=== PATIENT | male | born 1945 | race Caucasian/White ===

== ENCOUNTER 2019-10-22 07:42 | Inpatient (IN) | payer MEDICARE, OTHER ==
[~2019-10-22] VITALS: Ht 172.7 cm; Wt 173.7 kg
[~2019-10-22 07:42] MED LIST: HYDROCODON-ACE1 EAC9 PO; OMEPRAZOLE20 M1 PO; PRAVASTATIN SOD20 MG PO; TERAZOSIN HCL5 MG PO; ULTRAM50 MG PO; VERAPAMIL ER240 MG OD
[2019-10-22] MEDS ORDERED: CEFTRIAXONE SOD 1 GM VIAL IV ONE (08:30)
--- NOTE | 2019-10-22 09:15 | Diagnostic Imaging Report ---
EXAMINATION: CXR 1 [facility] INDICATION: ^fever ^[id number] ^0856. COMPARISON: None FINDINGS: AP view TUBES and LINES: None. LUNGS/PLEURA: Lungs are not well inflated. There are basilar opacities likely due to atelectasis.. There is no pleural effusion or pneumothorax. HEART AND MEDIASTINUM: The cardiomediastinal silhouette is unremarkable. BONES AND SOFT TISSUES: No acute osseous lesion. Soft tissues are unremarkable. UPPER ABDOMEN: No free air under the diaphragm. IMPRESSION: Basilar opacities likely atelectasis.. Signed by: Rufus Evangelista MD on 10/22/2019 9:12 AM
[2019-10-22] MEDS ORDERED: CEFTRIAXONE SOD 1 GM/NS 50 ML 50 ML IV ONE (09:39)
[2019-10-22] MEDS ORDERED: MORPHINE SULFATE 2 MG/ML SYR 1ML IV PRN (10:45)
[2019-10-22] MEDS ORDERED: ACETAMINOPHEN 325 MG TAB PO PRN (10:45)
[2019-10-22] MEDS ORDERED: ZOLPIDEM TARTRATE 5 MG TAB PO PRN (10:45)
[2019-10-22] MEDS ORDERED: DIPHENHYDRAMINE HCL INJ 50 MG/ML VIAL IV PRN (10:45)
[2019-10-22] MEDS ORDERED: ONDANSETRON HCL INJ 2MG/ML 2ML 2 MG/ML VIAL IV PRN (10:45)
--- NOTE | 2019-10-22 11:20 | NUR ---
[facility] called for transport
--- NOTE | 2019-10-22 11:32 | NUR ---
Report called to ELSY Moy
--- NOTE | 2019-10-22 11:50 | NUR ---
Pt is in the restroom vomiting
--- OUTSIDE RECORDS SUMMARY | 2019-10-22 12:11 | XMS REPORT ---
Author Author [facility] Address Unknown Phone Unavailable Care Team Providers Care Glost Kiln Placer Name Role Phone Rahul DAVE Unavailable Unavailable Problems This patient has no known problems. Allergies, Adverse Reactions, Alerts This patient has no known allergies or adverse reactions. Medications This patient has no known medications. Encounters Start Date/Time End Date/Time Encounter Type Admission Type Attending Clinicians Care Facility Care Department Encounter ID 2019-05-03 12:58:02 Outpatient [id number] Results Test Description Test Time Test Comments Text Results Atomic Results Result Comments CXR 1 [facility] - [facility] 2019-10-22 09:11:00 [facility] [address] [place] [address] Patient Name: PATRICE LOMBARDI MR #: [id number] : 1945 Age/Sex: 74/M Req #: [id number] Adm Physician: Ordered by: YOSELIN DAVE MD Report #: [id number] [facility] Room/Bed: Procedure: [id number] [facility]/CXR 1 [facility] Exam Date: 10/22/19 Exam Time: 0856 REPORT STATUS: Signed EXAMINATION: CXR 1 [facility] INDICATION: f ever [id number] 0856. COMPARISON: None FINDINGS: AP view TUBES and LINES: None. LUNGS/PLEURA: Lungs are not well inflated. There are basilar opacities likely due to atelectasis.. There is no pleural effusion or pneumothorax. HEART AND MEDIASTINUM: The cardiomediastinal silhouette is unremarkable. BONES AND SOFT TISSUES: No acute osseous lesion. Soft tissues are unremarkable. UPPER ABDOMEN: No free air under the diaphragm. IMPRESSION: Basilar opacities likely atelectasis.. Signed by: Rufus Evangelista MD on 10/22/2019 9:12 AM Dictated By: RUFUS EVANGELISTA MD 1 Transcribed By: FELICITAS on 10/22/19911 COPY TO: YOSELIN DAVE MD
[2019-10-22] MEDS ORDERED: XARELTO20 MG (12:29)
[2019-10-22] MEDS ORDERED: FUROSEMIDE40 MG PO (12:29)
[2019-10-22] MEDS ORDERED: FLOMAX0.4 MG PO (12:29)
[2019-10-22 13:00] VITALS: BP 122/68
--- NOTE | 2019-10-22 13:30 | NUR ---
PATIENT ARRIVED ON THE UNIT AT 1258 PER HIS ELECTRIC WHEELCHAIR FROM [facility]. PATIENT IS AWAKE, ALERT, AND IN STABLE CONDITION WITH NO S/S OF RESPIRATORY DISTRESS. PATIENT C/O ABD PAIN 2/10- DOES NOT WANT ANY MEDICATION AT THIS TIME. REDNESS AND SKIN TEARS NOTED TO ABD FOLD AND GROIN AREA. DISCOLORATION NOTED TO LOWER EXTREMITIES; NONPITTING EDEMA NOTED TO LOWER EXTREMITIES. CALL LIGHT IS WITHIN REACH, PATIENT INSTRUCTED TO CALL FOR ASSISTANCE NEEDED.
[2019-10-22 13:49] VITALS: BP 122/68
--- NOTE | 2019-10-22 13:55 | History and Physical ---
HISTORY OF PRESENT ILLNESS: The patient is a 74-year-old male, past medical history positive for sleep apnea, obesity, and valve replacement, who apparently came to the emergency room complaining of abdominal pain, fever, and cough. The patient's white blood count was extremely high and he was admitted to the hospital with diagnosis of UTI and pyelonephritis. REVIEW OF SYSTEMS: CARDIOVASCULAR: No chest pain or palpitation. RESPIRATORY: He has some cough. GASTROINTESTINAL: No nausea or vomiting. He has some diarrhea with abdominal cramping. GENITOURINARY: No frequency or dysuria. ALLERGIES: NOT ALLERGIC TO ANYTHING. PAST MEDICAL HISTORY: Hypertension, hypercholesterolemia, CHF, valve replacement. PHYSICAL EXAMINATION: HEART: Showed regular rhythm. Normal S1 and S2 sound. LUNGS: Clear bilaterally. ABDOMEN: Soft. EXTREMITIES: Show edema in both lower extremities. VITAL SIGNS: Blood pressure is 148/80, temperature is 99 degrees, highest is 100.8, heart rate 92 per minute, and oxygen saturation 96%. LABORATORY DATA: Blood culture and urine culture were sent. Reports are pending. We are going to order a chest CT also. FINAL IMPRESSION: 1. Fever, possible pyelonephritis, rule out pneumonia. 2. Hypertension. 3. Morbid obesity. 4. History of congestive heart failure. 5. Hypercholesterolemia. 6. Sleep apnea. PLAN OF TREATMENT: We are going to continue Rocephin 2 g IV daily. Terazosin will continue. Continue omeprazole. Continue pravastatin. Continue Xarelto. Continue hydralazine. Continue atenolol. Continue Flomax. Continue Entresto. Continue Lasix and potassium that he was taking at home. We are going to order a CBC and BMP tomorrow, CAT scan of the chest because of the cough just to make sure the patient does not have any atypical pneumonia. MD HAVEN Maynard/DAVON /[id number]
[2019-10-22] MEDS ORDERED: CEFEPIME HCL 2 GM/SOD CHL 0.9% 100 ML BAG IV SCH (14:00)
[2019-10-22 14:08] VITALS: BP 122/68
[2019-10-22] MEDS: LACTATED RINGER'S 1,000 ML IV SCH (14:23)
[2019-10-22 14:42] LABS: CREATINE KINASE MB 0.4 ng/mL (0-5.0)
[2019-10-22 16:00] VITALS: BP 143/59
[2019-10-22] MEDS ORDERED: CEFEPIME 2 GM/NS 0.9% 100 ML 100 ML IV SCH (16:00)
[2019-10-22] MEDS: ENOXAPARIN SOD INJ 40 MG/0.4 ML SYR SC SCH (16:04)
[2019-10-22] MEDS: FAMOTIDINE 20 MG/2 ML VIAL IV SCH (16:04)
[2019-10-22] MEDS: FUROSEMIDE 40 MG TAB PO SCH (16:04)
[2019-10-22] MEDS: PANTOPRAZOLE SOD 40 MG TABEC PO SCH (16:04)
[2019-10-22] MEDS: CEFTRIAXONE SOD 1 GM/NS 50 ML 50 ML IV SCH (18:10)
--- NOTE | 2019-10-22 18:30 | NUR ---
Dr. Donaldson informed of patient slipping in the restroom and RN guided the patient to the floor. No injuries occurred and the patient remains in stable condition.
--- NOTE | 2019-10-22 19:07 | Consultation ---
DATE OF CONSULTATION: REASON FOR CONSULTATION: Pneumonia. HISTORY OF PRESENT ILLNESS: This patient is a 74-year-old white male, who is morbidly obese patient, sleep apnea, valve replacement, comes in with 3 days history of not feeling well, abdominal pain, fever with diarrhea. The patient also has some cough started today. The patient lives at house with his son and his and their kids. No travel. The patient comes in with the above complaint. He was referred from an outside facility. Currently lying in bed. He is having some cough, which was little productive. He had chest x-ray showed basal opacity like atelectasis. REVIEW OF SYSTEMS: Otherwise as above. SOCIAL HISTORY: There is no smoking, drug abuse, or alcohol abuse. FAMILY HISTORY: Noncontributory. REVIEW OF SYSTEMS: Otherwise, HEENT: Negative. PULMONARY: As above. : Negative. GI: As above. PHYSICAL EXAMINATION: GENERAL: He is currently alert, oriented, obese. VITAL SIGNS: Stable, currently afebrile. HEENT: He is not icteric. NECK: Supple. CHEST: Few crackles. IMPRESSION: 1. Community-acquired pneumonia. 2. Concern about viral in the patient with multiple symptoms. 3. Since we are in the amid of outbreak for COVID-19, I would like to put the patient on droplet isolation and obtain COVID-19. Discussed with the medical team. We will follow. 4. Sleep apnea. 5. Morbidly obese patient. 6. Further recommendations to follow. MD ZENA Li/DAVON /[id number]
--- NOTE | 2019-10-22 19:26 | NUR ---
PATIENT IS IN STABLE CONDITION WITH NO S/S OF RESPIRATORY DISTRESS. NO PAIN VOICED. CPAP APPLIED. IV FLUIDS INFUSING. BED ALARM APPLIED. CALL LIGHT IS WITHIN REACH, PATIENT INSTRUCTED TO CALL FOR ASSISTANCE NEEDED. BEDSIDE SHIFT REPORT GIVEN TO ONCOMING NURSE.
--- NOTE | 2019-10-22 19:30 | NUR ---
RECEIVED REPORT FROM DAY NURSE. PATIENT IS RESTING COMFORTABLY IN THE BED. BED IS IN LOWEST POSITION AND CALL LIGHT IS WITHIN REACH. WILL CONTINUE TO MONITOR PATIENT.
[2019-10-22 20:00] VITALS: BP 127/57
[2019-10-22 20:54] LABS: CREATINE KINASE MB 0.5 ng/mL (0-5.0)
--- NOTE | 2019-10-22 22:18 | Diagnostic Imaging Report ---
CT chest without enhancement CPT code: 98821 INDICATION: Cough, shortness of breath TECHNIQUE: Thin collimation axial images obtained from the thoracic inlet to the level of the diaphragm without intravenous contrast. Dose reduction techniques used: Automated exposure control, adjustment of the mAs and/or kVp according to patient size, standardized low-dose protocol, and/or iterative reconstruction technique. RADIATION DOSE: Total DLP: 487.94 mGy*cm Estimated effective dose: (DLP x 0.015 x size factor) mSv CTDIvol has been reviewed. It is below the limits set by the Radiation Protocol Committee (RPC). COMPARISON: Chest x-ray 0749 hours. CHEST FINDINGS: Lymph nodes: No enlarged axillary, supraclavicular, mediastinal, or hilar lymph nodes given the lack of intravenous contrast. Thyroid: Visualized portions are normal. Mediastinum: TAVR in appropriate position. The heart is enlarged with coronary artery calcifications. Tiny pericardial effusion. Main pulmonary artery measures 4.0 cm in diameter. The ascending aorta measures 3.8 cm. Lungs: Right: Mild hyperinflation. Trace basilar atelectasis at the diaphragm. Small focus of atelectasis in the inferior upper lobe. No infiltrates. Subcentimeter calcified granuloma in the upper lobe. Left: Mild hyperinflation. Mild basilar atelectasis. No infiltrates. Airways: Diffuse bronchial wall thickening. Pleura: No pleural effusion or pleural based mass. ABDOMEN FINDINGS: Diffuse fatty atrophy of the pancreas body and tail. Nodule in the apex of the left adrenal gland measures 1.3 x 1.2 cm with attenuation of -36 HU. There is extensive streak artifact in the abdomen, however. Bones: Degenerative changes of the spine. Mild height loss of several lower thoracic vertebral bodies. The spinal canal is widely patent. Soft tissues: Calcification within the tendon of the left pectoralis minor. IMPRESSION: 1. Diffuse hyperinflation suggestive of small airways disease. Mild bibasilar atelectasis. Diffuse bronchial wall thickening suggestive chronic bronchitis. No infiltrates. 2. Cardiomegaly and TAVR. Enlarged pulmonary artery suggestive of pulmonary artery hypertension. 3. Left adrenal nodule may represent an adenoma or myelolipoma. This can be confirmed with CT of the abdomen on an outpatient basis. Signed by: Dr. Magdy Muñoz MD on 10/22/2019 10:14 PM
[2019-10-22 22:23] VITALS: BP 127/57
[2019-10-23] VITALS (8 sets, daily range): BP systolic 104–144; BP diastolic 51–68
[2019-10-23 05:54] LABS: BASOPHILS % 0.2 % (0.0-1.0); EOSINOPHILS % 0.2 % (0.0-6.0); HEMATOCRIT 40.6 % (38.2-49.6); HEMOGLOBIN 12.5 g/dL (14.0-18.0); LYMPHOCYTES # (AUTO) 0.7 (1.0-3.2); LYMPHOCYTES % 4.3 % (18.0-39.1); MEAN CORPUSCULAR HEMOGLOBIN 28.3 pg (28-32); MEAN CORPUSCULAR HGB CONC 30.8 g/dL (31-35); MEAN CORPUSCULAR VOLUME 91.9 fL (81-99); MONOCYTES # (AUTO) 1.9 (0.2-0.8); NEUTROPHILS # (AUTO) 13.3 (2.1-6.9); NEUTROPHILS % 82.6 % (38.7-80.0); PLATELET COUNT 216 x10e3/uL (140-360); RED BLOOD COUNT 4.42 x10e6/uL (4.3-5.7); RED CELL DISTRIBUTION WIDTH 14.5 % (11.7-14.4)
[2019-10-23 06:03] LABS: CREATINE KINASE MB 0.7 ng/mL (0-5.0)
[2019-10-23 06:24] LABS: ANION GAP 12.6 mmol/L (8-16); CALCIUM 9.6 mg/dL (8.4-10.2); CREATININE, SERUM 1.24 mg/dL (0.72-1.25); POTASSIUM 3.6 mmol/L (3.5-5.1)
--- NOTE | 2019-10-23 07:00 | NUR ---
Received bedside shift report. Patient in stable condition,no s/s of distress. CPAP on in place and working. Bed in lowest position and locked. Call light within reach.
[2019-10-23] MEDS: PANTOPRAZOLE SOD 40 MG TABEC PO SCH ×2 (07:15→16:15)
[2019-10-23] MEDS: TAMSULOSIN HCL 0.4 MG CAP PO SCH (08:15)
[2019-10-23] MEDS: PRAVASTATIN 20 MG TAB PO SCH (08:16)
[2019-10-23] MEDS: RIVAROXABAN 20 MG TABLET PO SCH (08:16)
[2019-10-23] MEDS: FAMOTIDINE 20 MG/2 ML VIAL IV SCH (08:28)
[2019-10-23] MEDS: FUROSEMIDE 40 MG TAB PO SCH ×2 (08:28→16:15)
--- NOTE | 2019-10-23 09:42 | NUR ---
Notified (Gregory LOVE) about [facility] alert. No orders received.
--- NOTE | 2019-10-23 10:07 | NUR ---
RN ASSISTED THE PATIENT BACK TO BED- PATIENT REFUSING THE BED ALARM AND NON-SKID SOCKS
[2019-10-23] MEDS ORDERED: ASPIRIN81 MG PO (10:54)
[2019-10-23] MEDS ORDERED: TERAZOSIN HCL10 MG PO (10:54)
[2019-10-23] MEDS ORDERED: POTASSIUM CHLO10 ME1 PO (10:54)
[2019-10-23] MEDS ORDERED: HYDRALAZINE HCL25 MG PO (10:54)
--- NOTE | 2019-10-23 13:39 | Progress Note ---
DATE: Internal Medicine Progress Note SUBJECTIVE: The patient came with fever, cough, diarrhea, originally diagnosed with UTI, but urine culture came back with contaminant. He has been ruled out for COVID-19 because of the cough and the leukopenia. PHYSICAL EXAMINATION: HEART: Showed regular rhythm. Normal S1 and S2 sounds. LUNGS: Clear bilaterally. VITAL SIGNS: Temperature 97.3, heart rate 82 per minute, respiratory rate 24 per minute, blood pressure 104/51, and oxygen saturation 95%. LABORATORY STUDIES: CBC; white blood cell count is elevated at 60,120, hemoglobin 12.5, hematocrit 40.6, platelet count 260,000, neutrophils elevated at 82.6, lymphocytes low at 4.3, monocytes high at 12.0, eosinophils 0.2, basophils 0.2. On the BMP; sodium 135, potassium 3.6, chloride 101, CO2 of 25, BUN 29, creatinine 1.24, glucose 114, and lactic acid 1.3. Troponins are negative x3, 0.018, 0.038, 0.048. Serology for coronavirus still pending. CT of the chest has been done because of a concern about COVID-19 and it showed the following; diffuse hyperinflation suggestive of small airway disease, mild bibasilar atelectasis, diffuse bronchial wall thickening suggestive of chronic bronchitis, no infiltrate, cardiomegaly and TAVR, enlarged pulmonary artery suggesting pulmonary artery hypertension, left adrenal nodule may represent a normal myelolipoma. This can be confirmed with a CT of the abdomen on an outpatient basis. We have blood cultures, which are negative for 24 hours. Urine culture showed some contamination. FINAL IMPRESSION: 1. Fever. 2. Hypertension. 3. Acute bronchitis, rule out COVID-19. 4. Morbid obesity. 5. History of congestive heart failure. 6. Hypercholesterolemia. 7. Sleep apnea. 8. Aortic valve replacement. 9. Pulmonary hypertension. PLAN OF TREATMENT: We are going to continue with current antibiotic therapy, which includes cefepime 1 g IV once a day. He is taking lactated Ringer's at 50 mL per hour. Continue Tylenol 650 mg every 4 hours as needed for pain or fever. Benadryl is going to be discontinued, we do not need that. Continue furosemide 40 mg twice a day. Lovenox 40 mg subcutaneous daily for DVT prophylaxis. Morphine 2 mg IV every 4 hours as needed for severe pain. Zofran 4 mg IV every 4 hours as needed for nausea and vomiting. Protonix 40 mg twice a day. Pravastatin 40 mg daily. Xarelto 20 mg daily. Flomax 0.4 mg daily. Ambien 5 mg at night p.r.n. for insomnia. We will wait for the COVID-19 test. Infectious Disease on the case. We are going to get a Pulmonary consult also. Internal medicine progress note, consult and report have been reviewed. MD HAVEN Maynard/DAVON /[id number]
--- NOTE | 2019-10-23 14:16 | NUR ---
PATIENT IS IN DROPLET ISOLATION FOR POSS TANNER VIRUS CM CALLED AND SPOKE WITH HIS DAUGHTER BRAULIO HAIRSTON. PATIENT IS A , AND LIVES WITH HIS DAUGHTER, HER , GRANDSON AND GRANDSON'S AND CHILDREN HE DOES NOT HAVE HOME HEALTH DME: HE HAS WHEELCHAIR AND BIPAP MACHINE PCP: DR. Gilma EVANGELISTA DC PLAN: RETURN HOME WITH FAMILY, PENDING MEDICAL OUTCOME.
[2019-10-23] MEDS: ENOXAPARIN SOD INJ 40 MG/0.4 ML SYR SC SCH (16:15)
[2019-10-23] MEDS: CEFTRIAXONE SOD 1 GM/NS 50 ML 50 ML IV SCH (16:15)
[2019-10-23] MEDS: LACTATED RINGER'S 1,000 ML IV SCH (16:15)
--- NOTE | 2019-10-23 19:14 | NUR ---
PATIENT IS SITTING IN HIS ELECTRIC WHEELCHAIR- IN STABLE CONDITION WITH NO S/S OF RESPIRATORY DISTRESS. NO PAIN VOICED. CALL LIGHT IS WITHIN REACH, PATIENT INSTRUCTED TO CALL FOR ASSISTANCE NEEDED. BEDSIDE SHIFT REPORT GIVEN TO ONCOMING NURSE.
--- NOTE | 2019-10-23 20:45 | NUR ---
Received new order from attending MD to DC IV fluids.
[2019-10-24] VITALS (9 sets, daily range): BP systolic 108–156; BP diastolic 68–81
[2019-10-24] MEDS: ACETAMINOPHEN 325 MG TAB PO PRN ×2 (00:35→23:41)
--- NOTE | 2019-10-24 00:35 | NUR ---
RECEIVED REPORT FROM CODY RN, PATIENT IS RESTING IN WHEELCHAIR IN STABLE CONDITION, NO SIGNS OF DISTRESS. NASAL CANNULA INTACT, CALL LIGHT WITHIN EASY REACH, WILL CONTINUE TO MONITOR.
--- NOTE | 2019-10-24 02:44 | NUR ---
SUCCESSFULLY TRANSFERRED PATIENT FROM WHEELCHAIR TO BED. PATIENT RESTING COMFORTABLY, NO SIGNS OF DISTRESS NOTED.
[2019-10-24 06:36] LABS: BASOPHILS % 0.1 % (0.0-1.0); EOSINOPHILS % 0.1 % (0.0-6.0); HEMATOCRIT 40.8 % (38.2-49.6); HEMOGLOBIN 12.8 g/dL (14.0-18.0); LYMPHOCYTES # (AUTO) 0.7 (1.0-3.2); LYMPHOCYTES % 4.8 % (18.0-39.1); MEAN CORPUSCULAR HEMOGLOBIN 28.6 pg (28-32); MEAN CORPUSCULAR HGB CONC 31.4 g/dL (31-35); MEAN CORPUSCULAR VOLUME 91.1 fL (81-99); MONOCYTES # (AUTO) 1.4 (0.2-0.8); MONOCYTES % 9.8 % (4.4-11.3); NEUTROPHILS # (AUTO) 12.2 (2.1-6.9); NEUTROPHILS % 84.4 % (38.7-80.0); PLATELET COUNT 229 x10e3/uL (140-360); RED BLOOD COUNT 4.48 x10e6/uL (4.3-5.7); RED CELL DISTRIBUTION WIDTH 14.3 % (11.7-14.4)
--- NOTE | 2019-10-24 07:00 | NUR ---
Received bedside shift report. Patient in stable condition,no s/s of distress. No complaints of pain. Patient up in wheelchair. Call light within reach. All personal items within reach.
[2019-10-24] MEDS: PRAVASTATIN 20 MG TAB PO SCH (08:52)
[2019-10-24] MEDS: ASPIRIN 81 MG CHEW TAB PO SCH (08:52)
[2019-10-24] MEDS: POTASSIUM CHLORIDE 10MEQ EA PO SCH (08:52)
[2019-10-24] MEDS: FUROSEMIDE 40 MG TAB PO SCH ×2 (08:52→16:39)
[2019-10-24] MEDS: TAMSULOSIN HCL 0.4 MG CAP PO SCH (08:52)
[2019-10-24] MEDS: RIVAROXABAN 20 MG TABLET PO SCH (08:52)
[2019-10-24] MEDS: PANTOPRAZOLE SOD 40 MG TABEC PO SCH ×2 (08:52→16:39)
[2019-10-24] MEDS: ENOXAPARIN SOD INJ 40 MG/0.4 ML SYR SC SCH (16:39)
[2019-10-24] MEDS: CEFTRIAXONE SOD 1 GM/NS 50 ML 50 ML IV SCH (16:39)
--- NOTE | 2019-10-24 19:37 | NUR ---
Bedside shift report completed with oncoming nurse. Patient in stable condition, no s/s of distress noted. No complaints of pain noted. Patient sitting at bedside; Call light within reach. All personal items within reach.
[2019-10-25 04:27] VITALS: BP 158/74
--- NOTE | 2019-10-25 07:10 | NUR ---
PATIENT OUT OF BED TO ELECTRIC WHEEL CHAIR, REQUESTED AND RECEIVED A CUP OF ICE WATER. REFUSED YELLOW SOCKS TO BE APPLIED STATING " THEY MADE ME FALL" EDUCATED THAT THE SOCKS WILL PREVENT HIM FROM FALLING, HE STILL REFUSED. ALL PERSONAL ITEMS AND CALL LIGHT AT REACH. INSTRUCTED TO CALL FOR ASSISTANCE NEEDED.
[2019-10-25 07:42] VITALS: BP 154/85
[2019-10-25] MEDS: PANTOPRAZOLE SOD 40 MG TABEC PO SCH (08:00)
[2019-10-25 08:09] VITALS: BP 154/88
[2019-10-25] MEDS: POTASSIUM CHLORIDE 10MEQ EA PO SCH (09:36)
[2019-10-25] MEDS: TAMSULOSIN HCL 0.4 MG CAP PO SCH (09:36)
[2019-10-25] MEDS: FUROSEMIDE 40 MG TAB PO SCH (09:36)
[2019-10-25] MEDS: ASPIRIN 81 MG CHEW TAB PO SCH (09:36)
[2019-10-25] MEDS: RIVAROXABAN 20 MG TABLET PO SCH (09:37)
[2019-10-25] MEDS: PRAVASTATIN 20 MG TAB PO SCH (09:37)
[2019-10-25] MEDS ORDERED: AUGMENTIN 875-1 EACH PO (11:36)
[2019-10-25 11:50] VITALS: BP 126/76
--- NOTE | 2019-10-25 12:05 | NUR ---
PATIENT DISCHARGED HOME. DISCHARGE INSTRUCTIONS, PRESCRIPTIONS, AND FOLLOW UP GIVEN TO PATIENT, HE VERBALIZED UNDERSTANDING. IV TO LEFT FOREARM REMOVED WITH TIP INTACT. ALL PERSONAL ITEMS TAKEN WITH PATIENT. LEFT UNIT PER WHEEL CHAIR TO FRONT LOBBY IN STABLE CONDITION.
--- NOTE | 2019-11-29 01:42 | Discharge Summary ---
CHIEF COMPLAINT: Abdominal pain and fever. FINAL DIAGNOSES: 1. Pneumonia. 2. Extreme obesity. 3. Pulmonary hypertension. DISPOSITION: Home. HOSPITAL COURSE: A 74-year-old male with past medical history of sleep apnea, obesity, valve replacement, presents to the emergency room complaining of abdominal pain, fever, and cough. Evaluated in the ER. Studies were performed. Findings were showing blood labs with elevated white count as well as UTI with diagnosis of pyelonephritis. Admission was made regarding fever, possible pyelonephritis, rule out pneumonia, hypertension, morbid obesity, history of congestive heart failure, hypercholesterolemia, sleep apnea. We will begin Rocephin, terazosin, and omeprazole. Home medications will be continuing as well. With admission, the patient was being reviewed with Infectious Disease regarding pneumonia by Dr. Tavera and with his review, his impression was community-acquired pneumonia, concerned about viral in the patient with multiple symptoms. We will be checking the patient for COVID-19. Sleep apnea, morbidly obese patient. The patient was admitted to the Med-Surg floor, was on a cardiac diet, . Vital signs continued to be monitored. Laboratory studies were showing elevated white count. X-rays of the chest were carried out. COVID-19 was requested and results were pending. With the application of antibiotics and other medications, the patient began to feel better. Cough was improving. Leukocytosis was improving. Fever was improving. Arrangements are being made to have the patient discharge home. He will be placed on Z-Tremaine at home along with Augmentin and the COVID results will be followed as an outpatient. He was cleared for discharge home. Chest x-ray shows bibasilar opacities, likely atelectasis. CT of chest shows diffuse hyperinflation suggestive of small airway disease. Mild bibasal atelectasis. Diffuse bronchial wall thickening suggestive of chronic bronchitis. No infiltrate. Cardiomegaly and TAVR. Enlarged pulmonary artery suggestive of pulmonary artery hypertension. Left adrenal nodule may represent an adenoma or myelolipoma. Cultures; urine and blood were negative. Laboratory studies shows initial CBC with white cell count elevated at 16,100, H and H 12.5 and 40.6. Followup white cell count still elevated at 14,400. COVID-19 study was negative. Chemistries show electrolytes to be unremarkable. Kidney functions were stable. Cardiac enzymes were stable. The patient responded to care and he was able to be discharged. The patient will be discharged home. IVs were discontinued. The patient will continue on his current diet. No equipments or supplies were necessary. No drains or [place] were needed. Activity level as directed by myself as well as by Dr. Tavera. The patient will be following back up with his PCP within 7 to 10 days. He will be continuing on amoxicillin, Augmentin 875 p.o. q.12, #16; aspirin 81 mg daily; furosemide 40 mg b.i.d.; hydralazine 25 mg p.o. t.i.d.; omeprazole 20 mg daily; potassium chloride 10 mEq p.o. daily; pravastatin sodium 20 mg daily; Xarelto 20 mg daily; Flomax 0.4 mg p.o. daily; and terazosin 10 mg p.o. daily. Dictated by MARGAUX Vale [place] MD CC/MODL /[id number]
== END 2019-10-25 12:00 | disposition home or self-care (01) | DRG 871 ==
LOC: FSED 07:42 → ERHOLD 10:37 → MED/SURG3 13:11
DX: A41.50 Gram-negative sepsis, unspecified (principal); J96.00 Acute respiratory failure, unspecified whether with hypoxia or hypercapnia; J18.9 Pneumonia, unspecified organism; Z68.43 Body mass index [BMI] 50.0-59.9, adult; N10 Acute pyelonephritis; R65.20 Severe sepsis without septic shock; Z95.2 Presence of prosthetic heart valve; I11.0 Hypertensive heart disease with heart failure; I50.9 Heart failure, unspecified; I25.10 Atherosclerotic heart disease of native coronary artery without angina pectoris; K21.9 Gastro-esophageal reflux disease without esophagitis; E78.5 Hyperlipidemia, unspecified; E66.01 Morbid (severe) obesity due to excess calories; G47.30 Sleep apnea, unspecified; E78.00 Pure hypercholesterolemia, unspecified; J20.9 Acute bronchitis, unspecified; I27.20 Pulmonary hypertension, unspecified
CPT/HCPCS: 36415; 71045; 71250; 80048; 80053; 81003; 82550; 82553; 83605; 83880; 84484; 85025; 87040; 87086; 87400; 87635; 94660; 99284; J0696; J1200; J1650; J2270; J2405; J7121

== ENCOUNTER 2019-11-23 19:00 | Inpatient (IN) | payer MEDICARE, OTHER ==
[~2019-11-23] VITALS: Ht 172.7 cm; Wt 114.0 kg
[~2019-11-23 19:00] MED LIST changes: +ASPIRIN81 MG PO; +AUGMENTIN 875-1 EACH PO; +FLOMAX0.4 MG PO; +FUROSEMIDE40 MG PO; +HYDRALAZINE HCL25 MG PO; +POTASSIUM CHLO10 ME1 PO; +TERAZOSIN HCL10 MG PO; +XARELTO20 MG
[2019-11-23] MEDS ORDERED: PIPER-TAZ 3.375 GM 50 ML IV ONE (20:15)
[2019-11-23] MEDS ORDERED: SODIUM CHLORIDE 0.9% 500ML 500 ML IV ONE ×2 (20:15→20:30)
[2019-11-23] MEDS ORDERED: MORPHINE SULFATE INJ 4 MG/ML INJ 1ML IV PRN (21:00)
[2019-11-23] MEDS ORDERED: SODIUM CHLORIDE 0.9% 500ML 500 ML ONE (21:04)
[2019-11-23] MEDS ORDERED: PIPER-TAZ 3.375 GM 50 ML ONE (21:04)
[2019-11-23] MEDS ORDERED: METRONIDAZOLE 500MG/NS 100ML 100 ML IV ONE (21:04)
[2019-11-23] MEDS: PIPER-TAZ 3.375 GM 50 ML IV SCH (21:05)
[2019-11-23] MEDS: METRONIDAZOLE 500MG/NS 100ML 100 ML IV SCH (21:20)
--- NOTE | 2019-11-23 21:56 | Diagnostic Imaging Report ---
EXAM: Right Upper Quadrant Ultrasound with Doppler INDICATION: Abdominal pain COMPARISON: Chest CT 10/22/2019. TECHNIQUE: Transverse and longitudinal images of the right upper abdomen were obtained. Grayscale, color Doppler and spectral waveform analysis of the hepatic vasculature and splenic vein were performed. FINDINGS: Liver: Size: 19.3 cm in the right midclavicular line, enlarged Appearance: Increased echogenicity, smooth contour Mass: No focal masses Gallbladder: Stones/Sludge: Gallstones. Wall: 0.5 cm, thicker than normal Appearance: No pericholecystic fluid. Appears distended/hydropic. Sonographic Dickerson's Sign: Negative Bile Ducts: Intrahepatic Ducts: No dilatation Extrahepatic Ducts: Common bile duct measures not seen cm, no dilatation Pancreas: Incompletely visualized due to overlying bowel gas, but no abnormality identified involving the visualized portions of the pancreas. Right Kidney: Size: 12.4 cm Echogenicity: Normal Parenchymal thickness: Normal Collecting system: No hydronephrosis Stones: None Cyst/Mass: None Vessels: Limited evaluation. Main Portal Vein: Diameter: 1.3 cm, normal. Normal flow direction. Aorta: Visualized portions are normal Inferior Vena Cava: Not seen Free Fluid: No ascites or pleural effusion IMPRESSION: Limited study due to body habitus. Gallstones, gallbladder distention, and probable wall thickening raises suspicion for cholecystitis, possibly chronic. Hepatomegaly with hepatic steatosis. Signed by: Philip Gonzalez DO on 11/23/2019 9:53 PM
[2019-11-23 22:50] VITALS: BP 118/73
--- NOTE | 2019-11-23 22:50 | NUR ---
PATIENT ARRIVED TO THE FLOOR STABLE WITH EMS. PATIENT REFUSES TO WEAR YELLOW NONSKID SOCKS AND REFUSES TO USE THE BED STATING HE NEEDS A RECLINER TO SLEEP. PT HAS HOME WHEELCHAIR WITH HIM AND EDUCATED TO CALL FOR ASSISTANCE WITH BATHROOM.
[2019-11-24] VITALS (11 sets, daily range): BP systolic 112–146; BP diastolic 65–80
[2019-11-24] MEDS ORDERED: SODIUM CHLORIDE 0.9% 250ML 250 ML ONE (05:01)
[2019-11-24] MEDS: METRONIDAZOLE 500MG/NS 100ML 100 ML IV SCH ×3 (05:03→20:21)
[2019-11-24 05:38] LABS: BASOPHILS # (AUTO) 0.1 (0.0-0.1); BASOPHILS % 0.8 % (0.0-1.0); EOSINOPHILS # (AUTO) 0.1 (0.0-0.4); HEMATOCRIT 37.6 % (38.2-49.6); HEMOGLOBIN 11.6 g/dL (14.0-18.0); LYMPHOCYTES # (AUTO) 1.5 (1.0-3.2); LYMPHOCYTES % 17.9 % (18.0-39.1); MEAN CORPUSCULAR HEMOGLOBIN 27.6 pg (28-32); MEAN CORPUSCULAR HGB CONC 30.9 g/dL (31-35); MEAN CORPUSCULAR VOLUME 89.3 fL (81-99); MONOCYTES # (AUTO) 0.8 (0.2-0.8); MONOCYTES % 9.1 % (4.4-11.3); NEUTROPHILS # (AUTO) 5.8 (2.1-6.9); NEUTROPHILS % 70.8 % (38.7-80.0); PLATELET COUNT 390 x10e3/uL (140-360); RED BLOOD COUNT 4.21 x10e6/uL (4.3-5.7); RED CELL DISTRIBUTION WIDTH 15.4 % (11.7-14.4)
[2019-11-24 05:43] LABS: ALANINE AMINOTRANSFERASE 34 IU/L (0-55); ALBUMIN 2.8 g/dL (3.5-5.0); ALBUMIN/GLOBULIN RATIO 0.7 (0.8-2.0); ALKALINE PHOSPHATASE 121 IU/L (40-150); ANION GAP 12.4 mmol/L (8-16); BLOOD UREA NITROGEN 9 mg/dL (7-26); BUN/CREATININE RATIO 11 (6-25); CALCIUM 9.6 mg/dL (8.4-10.2); CARBON DIOXIDE 28 mmol/L (22-29); CHLORIDE 105 mmol/L (98-107); CREATININE, SERUM 0.84 mg/dL (0.72-1.25); EST GLOMERULAR FILTRATION RATE > 60 ML/MIN (60-); GLUCOSE 103 mg/dL (74-118); LIPASE 7 U/L (8-78); POTASSIUM 4.4 mmol/L (3.5-5.1); SODIUM 141 mmol/L (136-145)
[2019-11-24] MEDS: PIPER-TAZ 3.375 GM 50 ML IV SCH ×4 (06:23→23:53)
--- NOTE | 2019-11-24 07:00 | NUR ---
RECEIVED BEDSIDE SHIFT REPORT FROM ELSY CROFT. PT DENIES NEEDS AT THIS TIME.
[2019-11-24 11:13] LABS: BILIRUBIN,URINE NEGATIVE (NEGATIVE); CLARITY,URINE CLEAR (CLEAR); COLOR,URINE YELLOW (YELLOW); KETONES,URINE NEGATIVE (NEGATIVE); LEUKOCYTE ESTERASE ,URINE NEGATIVE (NEGATIVE); NITRITE,URINE NEGATIVE (NEGATIVE); PROTEIN,URINE DIPSTICK NEGATIVE (NEGATIVE); URINE UROBILINOGEN 0.2 mg/dL (0.2 - 1)
[2019-11-24 11:33] LABS: BACTERIA,URINE FEW /HPF; EPITHELIAL CELLS,URINE RARE /LPF; WBC,URINE (MAN) 0-5 /HPF (0-5)
--- NOTE | 2019-11-24 13:24 | NUR ---
CALLED DR. OMALLEY SERVICE FOR CONSULT.
--- NOTE | 2019-11-24 18:00 | NUR ---
PT UNABLE TO GET ECHO THIS PM. WILL BE DONE IN THE AM FOR CARDIAC CLEARANCE.
--- NOTE | 2019-11-24 20:10 | Consultation ---
DATE OF CONSULTATION: Cardiology Consultation REASON FOR CONSULTATION: Cardiac clearance. HISTORY OF PRESENT ILLNESS: This is a 74-year-old man with morbid obesity, paroxysmal atrial fibrillation, moderate nonobstructive coronary artery disease, history of aortic stenosis status post transcatheter aortic valve replacement, and venous insufficiency with lymphedema, who presented to emergency department with abdominal pain in the right upper quadrant. No vomiting or diarrhea. The patient was found to have cholecystitis. They are requesting cardiac clearance. He is asymptomatic from a cardiovascular standpoint, however, he is fairly sedentary. He denies any ongoing chest pain, palpitations, shortness of breath, dizziness, lightheadedness, or syncope. He reports chronic lower extremity swelling. An echocardiogram was performed in our office in July of this year and it was very technically difficult and essentially nondiagnostic. REVIEW OF SYSTEMS: A 12-point review of system was conducted and is negative as except stated above in the HPI. PAST MEDICAL HISTORY: As stated above in the HPI. PAST SURGICAL HISTORY: Transcatheter aortic valve replacement. PAST FAMILY HISTORY: Noncontributory to current illness. SOCIAL HISTORY: No illicit drug, alcohol, or tobacco use. ALLERGIES: NO KNOWN DRUG ALLERGIES. MEDICATIONS: See medication reconciliation form. PHYSICAL EXAMINATION: VITAL SIGNS: Temperature is 97.9, heart rate is 89, respirations are 15, blood pressure is 146/74, and oxygen saturation 97% on 2 L nasal cannula. GENERAL: Well-appearing, well-built, in no apparent distress. Alert and oriented x3. HEAD: Normocephalic and atraumatic. EYES: The extraocular muscles are intact. Conjunctivae clear. NECK: No JVD. No bruits. CARDIOVASCULAR: He has regular rate and rhythm. Systolic murmur at the right sternal border. Distant heart sounds though. LUNGS: Clear to auscultation. ABDOMEN: Soft, nontender, and nondistended. EXTREMITIES: No clubbing or cyanosis. There is edema with chronic venous stasis dermatitis and lymphedema changes. NEUROLOGIC: No focal deficits noted. LABORATORY DATA: Reviewed. A 12-lead electrocardiogram shows stable left bundle branch block, normal sinus rhythm. IMPRESSION: 1. Preoperative cardiac risk assessment. 2. History of aortic stenosis, status post transcatheter aortic valve replacement. 3. Moderate nonobstructive coronary artery disease. 4. Left bundle branch block, chronic. 5. Morbid obesity. 6. Lymphedema. 7. Cholecystitis. RECOMMENDATIONS: The patient has no active cardiac conditions. His metabolic equivalents are less than 4, however, has a fairly extensive workup in the recent past. Due to the echocardiogram performed in July being essentially nondiagnostic, we will repeat that while over here to evaluate the aortic valve and the systolic function. If these are both normal and/or showing nonsevere decline, then the patient may proceed with planned surgery. Bladimir Pelayo DO BM/MODL /[id number]
[2019-11-25] VITALS (11 sets, daily range): BP systolic 117–157; BP diastolic 61–96
[2019-11-25] MEDS: METRONIDAZOLE 500MG/NS 100ML 100 ML IV SCH ×3 (04:27→21:49)
[2019-11-25 05:13] LABS: BASOPHILS # (AUTO) 0.1 (0.0-0.1); BASOPHILS % 0.9 % (0.0-1.0); EOSINOPHILS # (AUTO) 0.1 (0.0-0.4); EOSINOPHILS % 1.3 % (0.0-6.0); HEMATOCRIT 37.3 % (38.2-49.6); HEMOGLOBIN 11.5 g/dL (14.0-18.0); LYMPHOCYTES # (AUTO) 1.4 (1.0-3.2); LYMPHOCYTES % 19.9 % (18.0-39.1); MEAN CORPUSCULAR HEMOGLOBIN 27.5 pg (28-32); MEAN CORPUSCULAR HGB CONC 30.8 g/dL (31-35); MEAN CORPUSCULAR VOLUME 89.2 fL (81-99); MONOCYTES # (AUTO) 0.7 (0.2-0.8); MONOCYTES % 10.1 % (4.4-11.3); NEUTROPHILS # (AUTO) 4.7 (2.1-6.9); NEUTROPHILS % 67.2 % (38.7-80.0); PLATELET COUNT 341 x10e3/uL (140-360); RED BLOOD COUNT 4.18 x10e6/uL (4.3-5.7); RED CELL DISTRIBUTION WIDTH 15.6 % (11.7-14.4)
[2019-11-25 05:34] LABS: ALANINE AMINOTRANSFERASE 31 IU/L (0-55); ALBUMIN 2.8 g/dL (3.5-5.0); ALBUMIN/GLOBULIN RATIO 0.8 (0.8-2.0); ALKALINE PHOSPHATASE 104 IU/L (40-150); ANION GAP 12.6 mmol/L (8-16); BLOOD UREA NITROGEN 10 mg/dL (7-26); BUN/CREATININE RATIO 13 (6-25); CALCIUM 9.5 mg/dL (8.4-10.2); CARBON DIOXIDE 24 mmol/L (22-29); CHLORIDE 109 mmol/L (98-107); CREATININE, SERUM 0.75 mg/dL (0.72-1.25); EST GLOMERULAR FILTRATION RATE > 60 ML/MIN (60-); GLUCOSE 97 mg/dL (74-118); POTASSIUM 3.6 mmol/L (3.5-5.1); SODIUM 142 mmol/L (136-145)
[2019-11-25] MEDS: PIPER-TAZ 3.375 GM 50 ML IV SCH ×3 (06:09→18:14)
--- NOTE | 2019-11-25 07:10 | NUR ---
SPIRITUAL CONCERN Assessment: Pt requested embossing clerk visit via RN. Pt scheduled for procedure. Pt asked if product manager e commerce is available for anointing of the sick. Intervention: Provided pastoral presence, hospitality, sympathetic listening, and prayer. Explained availability of priests. Pt satisfied with prayer from Jainism tradition. Acquainted pt with availability of embossing clerk while hospitalized. Outcome: Pt expressed appreciation for visit. No need for follow up indicated at this time. SHAHNAZ RAINEY Director And Professor Spiritual Care Department O: [phone]
[2019-11-25 07:55] LABS: ANISOCYTOSIS SLIGHT; PLATELET ESTIMATE ADEQUATE; PLATELET MORPHOLOGY COMMENT FEW EDTA CLUMPING; RBC MORPHOLOGY COMMENT NORMAL
--- NOTE | 2019-11-25 10:02 | Diagnostic Imaging Report ---
X-ray chest AP portable Comparison: 10/22/2019 History: Preop Findings: Heart size borderline normal. The previously seen aortic valve prosthesis is barely visualized on this exam. Mediastinum remarkable for tortuous aorta. Left costophrenic angle has been excluded. Otherwise there is no definite pleural effusion. No pneumothorax. Lung dias unremarkable for significant focal disease. Visualized skeletal structures unremarkable for significant abnormality. Large body habitus. Impression: No significant acute cardiopulmonary abnormality on this exam. Signed by: Antwon Hallman MD on 11/25/2019 9:58 AM
--- NOTE | 2019-11-25 16:42 | NUR ---
WOUND CARE SCREENING CONSULT FOR 74 YO MALE WITH HX OF ACUTE CHOLECYSTITIS. ROMEL SCALE 19 ON MODERATE PUP STATUS AND INTERVENTIONS. LABS: WBC- 7.04 HGB- 11.5 GLUCOSE 97 SKIN ASSESSMENT COMPLETE, SKIN IS DRY AND INTACT. NO WOUND CARE NEEDED AT THIS TIME. RECOMMENDATIONS: NURSING TO MAINTAIN LOW AIR LOS MATTRESS. NURSING TO CONTINUE TO MONITOR PATIENT AND KEEP SKIN CLEAN AND FREE FROM STOOL OR IRRITATING MOISTURE AND CONTINUE TO FOLLOW MODERATE PUP INTERVENTION DAILY. NURSING TO CONTINUE REPOSITION PT SIDE TO SIDE EVERY TWO HOURS. NURSING TO CONTINUE TO OFFLOAD FEET AND HEELS AT ALL TIMES WITH PILLOW SUSPENSION WHEN IN BED. NURSING TO CONTINUE TO ASSIST PT OUT OF BED FOR NUTRITIONAL INTAKE. NURSING TO CONSULT WOUND CARE NEEDED. Addendum: 11/25/19 at 1647 by Lenore Dias RN Amended: Links added.
--- NOTE | 2019-11-25 17:18 | NUR ---
Called Dr. Hunter Pelayo, to make him aware patient had an episode of 12 beats V- tach, patient is sitting in chair, he is asymptomatic according to patient he did not feel any rapid beat or palpitations or chest pain. wating for call back from Dr. Pelayo.
--- NOTE | 2019-11-25 19:24 | NUR ---
Paged Dr. Hunter Pelayo a 2nd time left message in his cell phon made aware patient had episode of 12 beats of v-tach patient is asymptomatic
--- NOTE | 2019-11-25 19:48 | NUR ---
Received pt sitting up in recliner chair, awake a/o x3. No c/o distress or discomfort. No s/sx of distress noted. Pt awaiting transport to [facility] for scheduled test. Transporter here at this time to transport patient. Md called regarding earlier call from previous nurse. Will cont to mon.
--- NOTE | 2019-11-25 21:28 | NUR ---
Call placed to Dr. Jalloh to inform pt unable to complete nuc med test. Orders to keep npo at this time md will speak with pt tomorrow. Informed patient and verbalizes understanding.
[2019-11-26] VITALS (8 sets, daily range): BP systolic 119–154; BP diastolic 70–92
[2019-11-26] MEDS: PIPER-TAZ 3.375 GM 50 ML IV SCH ×4 (00:06→18:36)
[2019-11-26] MEDS: METRONIDAZOLE 500MG/NS 100ML 100 ML IV SCH ×3 (06:18→21:54)
--- NOTE | 2019-11-26 12:57 | Progress Note ---
DATE: 11/26/2019 CHIEF COMPLAINT/HISTORY OF PRESENT ILLNESS: This is a 74-year-old white man, whose primary treating diagnosis is upper abdominal pain secondary to cholelithiasis. The patient most likely has chronic cholecystitis. The patient unfortunately could not tolerate a HIDA scan yesterday. On admission, the patient underwent a gallbladder ultrasound that revealed cholelithiasis as well as probable wall thickening. Also, revealed hepatomegaly with hepatic steatosis. The patient will be seen later on today by his general surgeon, namely Dr. Cristi Jalloh. The patient was cleared for tentative gallbladder surgery by Cardiology namely, Dr. Bladimir Pelayo. The patient voices no complaints at this time. The patient says at this time, he has no abdominal pain. REVIEW OF SYSTEMS: As per HPI. PHYSICAL EXAMINATION: GENERAL: He is awake, alert, and fluent, in no distress. A very pleasant. VITAL SIGNS: Height 5 feet 8 inches. Weight is 360 pounds, BMI 55. Blood pressure is 118/82, pulse 86, respiratory rate 18, temperature 98.6, and oxygen saturation 98% room air. INTEGUMENT: Skin is warm and dry. No pallor, jaundice, diaphoresis. HEENT: Anicteric sclerae. Moist mucous membranes. NECK: Supple. CARDIOVASCULAR: Distant heart sounds. Regular and rhythm. LUNGS: No rales. No rhonchi. No wheezes. ABDOMEN: Extremely obese, yet soft, normal bowel sounds. Nontender. Difficult to assess for masses or organomegaly because of the patient's body habitus. EXTREMITIES: No edema or deformity. NEUROLOGIC: Predominantly bed bound. DIAGNOSES: 1. Cholelithiasis, likely chronic cholecystitis. 2. Extreme obesity, BMI 55. 3. Fatty liver disease. 4. Hypertensive heart disease. 5. Moderate nonobstructive coronary artery disease. 6. History aortic stenosis (status post transcatheter aortic valve placement). PLAN: 1. We will defer to General Surgery in regard to proceeding with elective cholecystectomy. 2. We will check a complete blood count, comprehensive metabolic profile in the morning. 3. We will hold Xarelto since the patient may have surgery in the near future. 4. Appreciate cardiology's input in regard to surgical clearance. I spent 20 minutes in the care of this patient. MD JETT Esposito/DAVON /[id number] MTDBerenice
--- NOTE | 2019-11-26 13:36 | Progress Note ---
DATE: Cardiology Progress Note SUBJECTIVE: Denies any chest pain or shortness of breath. OBJECTIVE: VITAL SIGNS: Temperature is 97.4, heart rate 72, respirations are 18, blood pressure is 135/74, and oxygen saturation 97% on room air. GENERAL: Well-appearing, no apparent distress, seated at bedside. CARDIOVASCULAR: Regular rate and rhythm. LUNGS: Clear to auscultation. ABDOMEN: Soft and obese. MEDICATIONS: Reviewed. LABORATORY DATA: Reviewed. Telemetry monitoring was reviewed personally and shows normal sinus rhythm with left bundle branch block. IMPRESSION: 1. Preoperative cardiac risk assessment. 2. Aortic stenosis, status post transcatheter aortic valve replacement. 3. [id number] nonobstructive coronary artery disease. 4. Chronic left bundle branch block. 5. Morbid obesity. 6. Lymphedema. 7. Cholecystitis. RECOMMENDATIONS: The patient's echocardiogram showed preserved left ventricular systolic function and normal valvular function. He is asymptomatic from a cardiovascular standpoint. Continue current cardiovascular medications. The patient may proceed with any planned surgery with a low cardiac risk. DO GIRMA Maldonado/MODL /[id number]
[2019-11-26] MEDS ORDERED: SODIUM CHLORIDE 0.9% 250ML 250 ML ONE (21:35)
--- NOTE | 2019-11-26 22:23 | NUR ---
Recieved pt in bed awake a/o x4. Pt denies discomfort or pain at this time. No s/sx of distress noted. Pt iv abx infusing w/o diff. Personal items and call light within reach will cont to mon
[2019-11-27] VITALS (8 sets, daily range): BP systolic 133–175; BP diastolic 62–99
[2019-11-27 05:52] LABS: BASOPHILS # (AUTO) 0.1 (0.0-0.1); BASOPHILS % 0.9 % (0.0-1.0); EOSINOPHILS # (AUTO) 0.2 (0.0-0.4); EOSINOPHILS % 2.3 % (0.0-6.0); HEMATOCRIT 37.2 % (38.2-49.6); HEMOGLOBIN 11.4 g/dL (14.0-18.0); LYMPHOCYTES # (AUTO) 1.2 (1.0-3.2); LYMPHOCYTES % 18.9 % (18.0-39.1); MEAN CORPUSCULAR HEMOGLOBIN 27.7 pg (28-32); MEAN CORPUSCULAR HGB CONC 30.6 g/dL (31-35); MEAN CORPUSCULAR VOLUME 90.3 fL (81-99); MONOCYTES # (AUTO) 0.7 (0.2-0.8); MONOCYTES % 10.5 % (4.4-11.3); NEUTROPHILS # (AUTO) 4.3 (2.1-6.9); NEUTROPHILS % 67.1 % (38.7-80.0); PLATELET COUNT 337 x10e3/uL (140-360); RED BLOOD COUNT 4.12 x10e6/uL (4.3-5.7); RED CELL DISTRIBUTION WIDTH 15.3 % (11.7-14.4)
[2019-11-27] MEDS: PIPER-TAZ 3.375 GM 50 ML IV SCH ×4 (06:00→18:47)
[2019-11-27 06:25] LABS: ALANINE AMINOTRANSFERASE 32 IU/L (0-55); ALBUMIN 2.9 g/dL (3.5-5.0); ALBUMIN/GLOBULIN RATIO 0.8 (0.8-2.0); ALKALINE PHOSPHATASE 90 IU/L (40-150); ANION GAP 13.4 mmol/L (8-16); BLOOD UREA NITROGEN 14 mg/dL (7-26); BUN/CREATININE RATIO 19 (6-25); CALCIUM 9.2 mg/dL (8.4-10.2); CARBON DIOXIDE 24 mmol/L (22-29); CHLORIDE 108 mmol/L (98-107); CREATININE, SERUM 0.74 mg/dL (0.72-1.25); EST GLOMERULAR FILTRATION RATE > 60 ML/MIN (60-); GLUCOSE 88 mg/dL (74-118); POTASSIUM 3.4 mmol/L (3.5-5.1); SODIUM 142 mmol/L (136-145)
[2019-11-27] MEDS: METRONIDAZOLE 500MG/NS 100ML 100 ML IV SCH ×3 (07:08→22:58)
[2019-11-27 10:38] LABS: INR 1.13; PROTHROMBIN TIME 15.2 seconds (11.9-14.5)
[2019-11-27] MEDS ORDERED: POTASSIUM CHLORIDE 10MEQ EA PO ONE (11:00)
--- NOTE | 2019-11-27 11:05 | Progress Note ---
DATE: 11/27/2019 CHIEF COMPLAINT/HISTORY OF PRESENT ILLNESS: A 74-year-old white man, whose primary treating diagnosis is cholecystitis, hypertensive heart disease and fatty liver disease. He also has underlying history of extreme obesity and moderate nonobstructive coronary artery disease. Moreover, he has history of transcatheter aortic valve placement due to aortic stenosis. The patient voiced no complaints. The patient at this time he has no abdominal pain. Blood work performed today was unremarkable except the potassium is 4.2. REVIEW OF SYSTEMS: As per HPI. PHYSICAL EXAMINATION: GENERAL: He is awake, alert and fully oriented, in no distress, very pleasant, cooperative to exam. VITAL SIGNS: Blood pressure 158/68, pulse 70, respiratory rate 18, and oxygen saturation 95% on room air, and temperature 98.3, height 5 feet 8 inches, weight is 360 pounds. BMI of 55. He is currently uses CPAP machine for sleep apnea. INTEGUMENT: Skin is warm and dry. No pallor, jaundice, or diaphoresis. HEENT: Anterior sclerae with moist mucous membranes. NECK: Supple CARDIOVASCULAR: Distant heart sounds. Regular rate and rhythm. LUNGS: No rales, no rhonchi, no wheezes. ABDOMEN: Obese, yet benign, nontender. EXTREMITIES: No edema or deformity. NEUROLOGIC: Predominantly bed bound. DIAGNOSES: 1. Cholecystitis. 2. Extreme obesity with a BMI of 55. 3. Fatty liver disease. 4. Hypertensive heart disease. 5. Moderate nonobstructive coronary artery disease. 6. History of aortic stenosis. 7. History of transcatheter aortic valve placement due to aortic stenosis. 8. Bed-bound state secondary to severe right hip degenerative joint disease. PLAN: 1. Tentative elective cholecystectomy tomorrow. 2. We will check prothrombin time, partial thromboplastin time and INR tomorrow morning. 3. Follow blood work. 4. Once again, hold urologist since patient will undergo elective cholecystectomy tomorrow. 5. We will replete potassium level. I spent 25 minutes in the care of this patient. MD JETT Esposito/DAVON /[id number] [facility] HOSPITALBerenice
--- NOTE | 2019-11-27 23:00 | NUR ---
patient just had 1x bowel movement, also had shower with Hibiclens, tolerated well.
[2019-11-28] VITALS (7 sets, daily range): BP systolic 107–157; BP diastolic 77–88
[2019-11-28] MEDS: PIPER-TAZ 3.375 GM 50 ML IV SCH ×4 (00:03→17:39)
[2019-11-28 05:17] LABS: BASOPHILS # (AUTO) 0.1 (0.0-0.1); BASOPHILS % 0.7 % (0.0-1.0); EOSINOPHILS # (AUTO) 0.2 (0.0-0.4); EOSINOPHILS % 2.4 % (0.0-6.0); HEMATOCRIT 37.6 % (38.2-49.6); HEMOGLOBIN 11.7 g/dL (14.0-18.0); LYMPHOCYTES # (AUTO) 1.2 (1.0-3.2); LYMPHOCYTES % 18.3 % (18.0-39.1); MEAN CORPUSCULAR HEMOGLOBIN 27.7 pg (28-32); MEAN CORPUSCULAR HGB CONC 31.1 g/dL (31-35); MEAN CORPUSCULAR VOLUME 88.9 fL (81-99); MONOCYTES # (AUTO) 0.7 (0.2-0.8); MONOCYTES % 10.8 % (4.4-11.3); NEUTROPHILS # (AUTO) 4.6 (2.1-6.9); NEUTROPHILS % 67.4 % (38.7-80.0); PLATELET COUNT 316 x10e3/uL (140-360); RED BLOOD COUNT 4.23 x10e6/uL (4.3-5.7); RED CELL DISTRIBUTION WIDTH 15.3 % (11.7-14.4)
[2019-11-28 05:47] LABS: ALANINE AMINOTRANSFERASE 29 IU/L (0-55); ALBUMIN 2.9 g/dL (3.5-5.0); ALBUMIN/GLOBULIN RATIO 0.8 (0.8-2.0); ALKALINE PHOSPHATASE 88 IU/L (40-150); ANION GAP 13.6 mmol/L (8-16); BLOOD UREA NITROGEN 11 mg/dL (7-26); BUN/CREATININE RATIO 14 (6-25); CALCIUM 9.3 mg/dL (8.4-10.2); CARBON DIOXIDE 26 mmol/L (22-29); CHLORIDE 105 mmol/L (98-107); EST GLOMERULAR FILTRATION RATE > 60 ML/MIN (60-); GLUCOSE 89 mg/dL (74-118); POTASSIUM 3.6 mmol/L (3.5-5.1); SODIUM 141 mmol/L (136-145)
[2019-11-28] MEDS: METRONIDAZOLE 500MG/NS 100ML 100 ML IV SCH ×3 (06:12→22:00)
--- NOTE | 2019-11-28 07:00 | NUR ---
BEDSIDE SHIFT REPORT FROM CONTRACT LAW SPECIALIST RN. PT DENIES NEEDS AT THIS TIME.
--- NOTE | 2019-11-28 09:43 | Progress Note ---
DATE: Cardiology progress note. SUBJECTIVE: The patient is feeling well from a cardiovascular standpoint. No chest pain, shortness of breath or palpitations. OBJECTIVE: VITAL SIGNS: Temperature is 98.4, heart rate is 70, respirations are 19, blood pressure is 138/67, oxygen saturation 96% on room air. GENERAL: Well-appearing obese man, lying comfortably in bed, no apparent distress. CARDIOVASCULAR: Regular rate and rhythm. LUNGS: Clear to auscultation. ABDOMEN: Obese, soft, nontender. EXTREMITIES: Lymphedema and venous stasis dermatitis present. LABORATORY DATA: Reviewed. CARDIOVASCULAR MEDICATIONS: Reviewed. Telemetry monitoring was reviewed personally for diagnostic purposes and showed a left bundle branch block with normal sinus rhythm, no arrhythmias. IMPRESSION: 1. Cholecystitis. 2. Preoperative cardiac risk assessment. 3. History of aortic stenosis, status post transcatheter aortic valve replacement. 4. Moderate nonobstructive coronary disease. 5. Chronic left bundle branch block. 6. Morbid obesity. 7. Lymphedema. RECOMMENDATION: His echocardiogram showed normal left ventricular systolic function and normal bioprosthetic valvular function. The patient may proceed with planned surgery with a low cardiac risk. Continue current cardiovascular medications. Maintain on telemetry. DO GIRMA Maldonado/DAVON /[id number]
--- NOTE | 2019-11-28 11:38 | NUR ---
PT OFF THE FLOOR TO OR. DAUGHTER BRAULIO CALLED.
[2019-11-28] MEDS ORDERED: BUPIVACAINE HCL 0.5% INJ 30 ML VIAL INJ ONE (12:25)
[2019-11-28] MEDS ORDERED: BUPIVACAINE 0.5%/EPI 30 ML SDV INJ ONE (12:42)
[2019-11-28] MEDS ORDERED: METRONIDAZOLE 500MG/NS 100ML 100 ML IV ONE (14:01)
[2019-11-28] MEDS ORDERED: SUGAMMADEX SODIUM 200 MG/2 ML VIAL IV ONE (15:44)
[2019-11-28] MEDS: SODIUM CHLORIDE 0.9% 1000ML 1,000 ML IV SCH (15:45)
[2019-11-28] MEDS ORDERED: FENTANYL CITRATE/PF 100MCG/2 ML INJ ONE ×2 (15:48→18:43)
[2019-11-28] MEDS: HYDROMORPHONE 1MG/1ML INJ IV PRN ×2 (16:05→21:45)
[2019-11-28] MEDS ORDERED: HYDROMORPHONE 2MG/ML 2 MG/ML ML ONE (16:10)
--- NOTE | 2019-11-28 16:41 | NUR ---
Nutrition Screen Note RD Recommendation for Physician: -Recommend advancing to a heart healthy diet when medically appropriate Plan of Care: RD following, monitoring for tolerance and adequacy Nutrition reason for involvement: NPO/CL diet for > 4 days Primary Diagnose(s): acute cholecystitis PMH: morbid obesity, paroxysmal atrial fibrillation, moderate nonobstructive coronary artery disease, history of aortic stenosis status post transcatheter aortic valve replacement, and venous insufficiency with lymphedema Ht: 68 in Wt: 357 lb BMI: 54.3 kg/m2 IBW:[address] Assessment: (11/28/19) Chart reviewed. Labs and meds reviewed. Pt is a 74 year old male admitted with acute cholecystitis. Pt had a laparoscopic cholecystectomy today per chart. Pt is currently NPO but was previously on a clear liquid diet. Pt has been NPO/clear liquid diet for > 4 days. Pt reports he had been tolerating clear liquids. Prior to admission, pt reports he was eating well. Pt reports he used to weigh 400 lbs in September and now weighs 361 lbs. Pt reports this is not unintentional weight loss. No N/V, but pt reports some diarrhea. Will continue to monitor unless consulted sooner. Current Diet: NPO Malnutrition Evaluation (11/28/19) The patient does not meet criteria for a specified degree of malnutrition at this time. Will re-evaluate at follow-up as appropriate. Energy intake: <50% of estimated energy requirements for 5 days Weight loss: Not unintentional per patient Fat loss: no loss identified per observation Muscle loss: no loss identified per observation Supporting Evidence: Fluid accumulation: no edema per MD note Functional Status: unable to evaluate Diet Education Needs Assessment: Diet education not indicated, pt is on a temporary/transition diet Nutrition Care Level: moderate Signed: Helen Yang, RD, LD
--- NOTE | 2019-11-28 17:00 | NUR ---
PT BACK TO THE FLOOR FROM PACU. PT'S VITALS WNL. PT DENIES NEEDS AT THIS TIME.
[2019-11-28] MEDS: PANTOPRAZOLE 40 MG 10ML VIAL IV SCH (17:38)
[2019-11-28] MEDS ORDERED: ACETAMINOPHEN 1000 MG/100 ML IV PRN (18:00)
--- NOTE | 2019-11-28 18:46 | Operative Report ---
DATE OF PROCEDURE: 11/28/2019 SURGEON: Cristi Jalloh MD PREOPERATIVE DIAGNOSES: Acute cholecystitis and cholelithiasis. POSTOPERATIVE DIAGNOSES: Acute purulent cholecystitis and cholelithiasis with matted adhesions. OPERATIONS PERFORMED: Laparoscopy converted to exploratory laparotomy and cholecystectomy. ASSISTANTS: 1. Ancelmo Jalloh MD. 2. Jozef QUIGLEY. ANESTHESIA: General. COMPLICATIONS: None. ESTIMATED BLOOD LOSS: 100 mL. DESCRIPTION OF PROCEDURE: With the patient lying in bed in the supine position, under good general endotracheal anesthesia, and the abdomen was prepped with Betadine solution and draped in the usual manner. A Veress needle was introduced into the right upper quadrant and pneumoperitoneum was established without any difficulty. A 5 mm trocar was placed into the right upper quadrant and a 5 mm video laparoscope was placed into the intraabdominal cavity. Under direct vision, an 11 mm trocar was placed in the right mid abdomen and two more 5 mm trocars were placed in the left upper quadrant. Video laparoscopy at this point revealed the gallbladder could not be visualized at all, the liver was totally covered up with thick adhesions to the omentum, likely secondary to [id number] cholecystitis. Using the Harmonic Scalpel, we slowly and carefully then the omentum from the liver and we managed to get the part of the right lobe of the liver from the omentum. At this point, it became obvious that we could visualize part of the gallbladder. The gallbladder was extremely thick-walled and chronically inflamed. He was densely distended. The transverse colon was totally plastered onto the gallbladder and the duodenum was similarly plastered to the gallbladder, and there was no way to get down to the area of the cystic duct common duct junction, and there was no way to safely separate the structures or were stuck together, so we decided to convert the procedure to an open procedure. The trocars were removed and a right subcostal incision was made, carried down through the subcutaneous tissue through the anterior rectus fascia. The rectus muscle was divided with the cautery. The posterior rectus sheath was opened and the abdomen was entered. Upon entering the abdominal cavity, again all the previously described findings were encountered, very slowly and very carefully we managed to separate the transverse colon from the gallbladder and the liver, and this was swept downward similarly we were unable to separate the duodenum from the gallbladder and the triangle of Calot where he was totally plastered. At this point, to visualize the cystic duct common duct junction, so we decided to take the gallbladder from the top. The gallbladder was first decompressed and it was full of stones and also full of gross pus, although this was aspirated. The gallbladder was then slowly and carefully taken down off the liver bed, there was a tremendous amount of fibrosis in the liver bed. Obviously, this patient has had many episodes of cholecystitis in the past. Slowly and carefully the gallbladder was then dissected off the liver bed at the neck of the gallbladder, the cystic duct was then visualized. The cystic artery was ligated with 2-0 silk and divided. The cystic duct was then slowly and carefully , and the cystic duct was then ligated with 2-0 silk and the gallbladder was divided, and sent for pathological examination. The whole abdomen was then copiously irrigated with saline solution. Hemostasis was ascertained. A 10 flat Irvin-Ellsworth drain was then brought out through a separate stab wound incision and placed in the hepatorenal fossa. The abdomen was then closed in layers. The peritoneum was closed with a running suture of #1 Vicryl. The anterior rectus sheath was closed with a running suture of #1 Vicryl and the skin was closed with clips. Dressings were applied. The sponge, lap, needles counts were correct. The patient tolerated the procedure well and returned to the recovery room in stable condition. MD TO Arellano/DAVON /[id number]
[2019-11-28] MEDS ORDERED: LIDOCAINE HCL 2% LOCAL INJ 5 ML SDV VIAL INJ ONE (19:21)
[2019-11-28] MEDS ORDERED: EPHEDRINE SULFATE INJ 50 MG/ML VIAL ONE (19:21)
[2019-11-28] MEDS ORDERED: ONDANSETRON HCL INJ 2MG/ML 2ML 2 MG/ML VIAL ONE (19:21)
[2019-11-28] MEDS ORDERED: ACETAMINOPHEN 1000 MG/100 ML IV ONE (19:21)
[2019-11-28] MEDS ORDERED: ROCURONIUM BROMIDE 10 MG/ML 5ML VIAL IV ONE (19:21)
[2019-11-28] MEDS ORDERED: DEXAMETHASONE SOD PHOS INJ 4 MG/ML VIAL ONE (19:21)
[2019-11-28] MEDS ORDERED: PROPOFOL IV EMULSION 10 MG/ML 20 ML VIAL ONE (19:21)
[2019-11-28] MEDS ORDERED: CEFTRIAXONE SOD 1 GM VIAL ONE (19:21)
[2019-11-28] MEDS ORDERED: SUCCINYLCHOLINE CHLORIDE 20 MG/ML 10ML VIAL ONE (19:21)
[2019-11-28] MEDS ORDERED: SEVOFLURANE INHAL SOLN 250 ML PEN BTL ONE (19:21)
[2019-11-28] MEDS: ONDANSETRON HCL INJ 2MG/ML 2ML 2 MG/ML VIAL IV PRN (21:45)
[2019-11-29] VITALS (7 sets, daily range): BP systolic 115–147; BP diastolic 57–84
[2019-11-29] MEDS: PIPER-TAZ 3.375 GM 50 ML IV SCH ×5 (00:15→23:29)
[2019-11-29] MEDS: SODIUM CHLORIDE 0.9% 1000ML 1,000 ML IV SCH ×3 (03:24→21:32)
[2019-11-29] MEDS: METRONIDAZOLE 500MG/NS 100ML 100 ML IV SCH ×3 (06:36→21:32)
--- NOTE | 2019-11-29 07:00 | NUR ---
BEDSIDE SHIFT REPORT RECEIVED FROM ELSY MENDEZ. PT DENIES NEEDS AT THIS TIME.
--- NOTE | 2019-11-29 07:10 | NUR ---
Bedside report and walking rounds completed with on coming nurse. Patient in bed with call light within reach. No issues or concerns noted.
[2019-11-29 09:09] LABS: BASOPHILS % 0.2 % (0.0-1.0); HEMATOCRIT 37.2 % (38.2-49.6); HEMOGLOBIN 11.4 g/dL (14.0-18.0); LYMPHOCYTES # (AUTO) 0.8 (1.0-3.2); LYMPHOCYTES % 7.3 % (18.0-39.1); MEAN CORPUSCULAR HEMOGLOBIN 27.7 pg (28-32); MEAN CORPUSCULAR HGB CONC 30.6 g/dL (31-35); MEAN CORPUSCULAR VOLUME 90.3 fL (81-99); MONOCYTES # (AUTO) 1.2 (0.2-0.8); MONOCYTES % 10.7 % (4.4-11.3); NEUTROPHILS # (AUTO) 8.9 (2.1-6.9); NEUTROPHILS % 81.4 % (38.7-80.0); PLATELET COUNT 299 x10e3/uL (140-360); RED BLOOD COUNT 4.12 x10e6/uL (4.3-5.7); RED CELL DISTRIBUTION WIDTH 15.6 % (11.7-14.4)
[2019-11-29 09:32] LABS: ALANINE AMINOTRANSFERASE 33 IU/L (0-55); ALBUMIN 2.7 g/dL (3.5-5.0); ALBUMIN/GLOBULIN RATIO 0.8 (0.8-2.0); ALKALINE PHOSPHATASE 70 IU/L (40-150); ANION GAP 13.8 mmol/L (8-16); BLOOD UREA NITROGEN 11 mg/dL (7-26); BUN/CREATININE RATIO 13 (6-25); CALCIUM 9.2 mg/dL (8.4-10.2); CARBON DIOXIDE 23 mmol/L (22-29); CHLORIDE 108 mmol/L (98-107); CREATININE, SERUM 0.82 mg/dL (0.72-1.25); EST GLOMERULAR FILTRATION RATE > 60 ML/MIN (60-); GLUCOSE 107 mg/dL (74-118); POTASSIUM 3.8 mmol/L (3.5-5.1); SODIUM 141 mmol/L (136-145)
--- NOTE | 2019-11-29 13:45 | Progress Note ---
DATE: 11/29/2019 Cardiology Progress Note SUBJECTIVE: The patient denies chest pain or shortness of breath. He underwent open cholecystectomy yesterday. OBJECTIVE: VITAL SIGNS: Temperature 99.2 degrees, pulse 90, respiratory rate 19, blood pressure 123/76, and oxygen saturation 100% on 2 L nasal cannula. GENERAL: Elderly man, in no acute distress. LUNGS: Clear to auscultation bilaterally. No wheezes or crackles. CARDIOVASCULAR: Normal rate. Regular rhythm. No murmur. Normal S1 and S2. ABDOMEN: Soft and nontender. EXTREMITIES: Lymphedema and chronic venous stasis was observed. CARDIAC MEDICATIONS: None. LABORATORY DATA: WBC 10.93, hemoglobin 11.1, hematocrit 37.2, and platelets 299. Sodium 141, potassium 3.8, chloride 108, CO2 23, BUN 11, and creatinine 0.82. Telemetry was personally reviewed and interpreted revealing normal sinus rhythm. IMPRESSION: 1. Cholecystitis. 2. History of aortic stenosis, status post transcatheter aortic valve replacement. 3. Moderate nonobstructive coronary artery disease. 4. Chronic left bundle-branch block. 5. Morbid obesity. 6. Lymphedema. RECOMMENDATIONS: Echocardiogram demonstrated normal LV systolic function and normal bioprosthetic valve function. The patient is status post open cholecystectomy. Recommend resuming home cardiac medications. Restart Xarelto once agreeable from a surgical standpoint. Monitor on telemetry. Thank you for this consult. We will continue to follow. Breonna Abebe MD ABS/MODL /[id number]
[2019-11-29] MEDS: PANTOPRAZOLE 40 MG 10ML VIAL IV SCH (16:52)
[2019-11-30] VITALS (9 sets, daily range): BP systolic 130–162; BP diastolic 78–88
[2019-11-30] MEDS: ONDANSETRON HCL INJ 2MG/ML 2ML 2 MG/ML VIAL IV PRN (01:19)
[2019-11-30] MEDS: HYDROMORPHONE 1MG/1ML INJ IV PRN ×4 (01:19→23:25)
[2019-11-30] MEDS: METRONIDAZOLE 500MG/NS 100ML 100 ML IV SCH ×3 (04:35→22:05)
[2019-11-30 05:28] LABS: BASOPHILS % 0.3 % (0.0-1.0); EOSINOPHILS % 0.2 % (0.0-6.0); HEMATOCRIT 35.9 % (38.2-49.6); HEMOGLOBIN 10.8 g/dL (14.0-18.0); LYMPHOCYTES # (AUTO) 1.2 (1.0-3.2); LYMPHOCYTES % 10.4 % (18.0-39.1); MEAN CORPUSCULAR HEMOGLOBIN 28.1 pg (28-32); MEAN CORPUSCULAR HGB CONC 30.1 g/dL (31-35); MEAN CORPUSCULAR VOLUME 93.5 fL (81-99); MONOCYTES # (AUTO) 1.3 (0.2-0.8); NEUTROPHILS % 77.8 % (38.7-80.0); PLATELET COUNT 270 x10e3/uL (140-360); RED BLOOD COUNT 3.84 x10e6/uL (4.3-5.7); RED CELL DISTRIBUTION WIDTH 15.8 % (11.7-14.4)
[2019-11-30] MEDS: PIPER-TAZ 3.375 GM 50 ML IV SCH ×4 (05:38→23:17)
[2019-11-30 05:58] LABS: ALANINE AMINOTRANSFERASE 31 IU/L (0-55); ALBUMIN 2.7 g/dL (3.5-5.0); ALBUMIN/GLOBULIN RATIO 0.7 (0.8-2.0); ALKALINE PHOSPHATASE 65 IU/L (40-150); ANION GAP 12.6 mmol/L (8-16); BLOOD UREA NITROGEN 9 mg/dL (7-26); BUN/CREATININE RATIO 13 (6-25); CALCIUM 8.9 mg/dL (8.4-10.2); CARBON DIOXIDE 25 mmol/L (22-29); CHLORIDE 105 mmol/L (98-107); CREATININE, SERUM 0.71 mg/dL (0.72-1.25); EST GLOMERULAR FILTRATION RATE > 60 ML/MIN (60-); GLUCOSE 106 mg/dL (74-118); POTASSIUM 3.6 mmol/L (3.5-5.1); SODIUM 139 mmol/L (136-145)
[2019-11-30] MEDS: PANTOPRAZOLE 40 MG 10ML VIAL IV SCH (18:59)
--- NOTE | 2019-11-30 21:05 | Progress Note ---
DATE: 11/30/2019 Cardiology Progress Note SUBJECTIVE: The patient denies chest pain or shortness of breath. OBJECTIVE: VITAL SIGNS: Temperature 98.7 degrees, pulse 89, respiratory rate 18, blood pressure 155/79, and oxygen saturation 96% on room air. GENERAL: Obese gentleman, in no acute distress. Awake and alert. LUNGS: Clear to auscultation bilaterally. No wheezes or crackles. CARDIOVASCULAR: Normal rate regular rhythm. No murmur. Normal S1, S2. ABDOMEN: Soft and nontender. EXTREMITIES: Lymphedema and chronic venous stasis was observed. LABORATORY DATA: WBC 11.5, hemoglobin 10.8, hematocrit 35.9, platelets 270. Sodium 139, potassium 3.6, chloride 105, CO2 of 25, BUN 9 and creatinine 0.71. Telemetry was personally reviewed and interpreted revealing normal sinus rhythm. IMPRESSION: 1. Cholecystitis. 2. History of aortic stenosis, status post transcatheter aortic valve replacement. 3. Moderate nonobstructive coronary artery disease. 4. Chronic left bundle-branch block. 5. Morbid obese. 6. Lymphedema. RECOMMENDATIONS: Echocardiogram showed normal LV systolic function and normal bioprosthetic valve function. The patient is status post open cholecystectomy. Recommend resume home cardiac medications. Resume Xarelto once bleeding risks is acceptable from a surgical standpoint. Maintain the patient on telemetry. Thank you for this consult. We will continue to follow. Breonna Abebe MD ABS/MODL /[id number]
[2019-12-01] VITALS (11 sets, daily range): BP systolic 101–167; BP diastolic 67–99
[2019-12-01] MEDS: HYDROMORPHONE 1MG/1ML INJ IV PRN ×2 (03:31→19:33)
[2019-12-01 05:19] LABS: BASOPHILS % 0.5 % (0.0-1.0); EOSINOPHILS # (AUTO) 0.1 (0.0-0.4); HEMATOCRIT 36.2 % (38.2-49.6); HEMOGLOBIN 10.9 g/dL (14.0-18.0); LYMPHOCYTES # (AUTO) 1.3 (1.0-3.2); LYMPHOCYTES % 15.2 % (18.0-39.1); MEAN CORPUSCULAR HEMOGLOBIN 28.3 pg (28-32); MEAN CORPUSCULAR HGB CONC 30.1 g/dL (31-35); MONOCYTES % 11.4 % (4.4-11.3); NEUTROPHILS # (AUTO) 6.2 (2.1-6.9); NEUTROPHILS % 71.4 % (38.7-80.0); PLATELET COUNT 258 x10e3/uL (140-360); RED BLOOD COUNT 3.85 x10e6/uL (4.3-5.7); RED CELL DISTRIBUTION WIDTH 15.8 % (11.7-14.4)
[2019-12-01 05:46] LABS: ALANINE AMINOTRANSFERASE 24 IU/L (0-55); ALBUMIN 2.5 g/dL (3.5-5.0); ALBUMIN/GLOBULIN RATIO 0.6 (0.8-2.0); ALKALINE PHOSPHATASE 61 IU/L (40-150); ANION GAP 12.6 mmol/L (8-16); BLOOD UREA NITROGEN 8 mg/dL (7-26); BUN/CREATININE RATIO 12 (6-25); CALCIUM 9.5 mg/dL (8.4-10.2); CARBON DIOXIDE 28 mmol/L (22-29); CHLORIDE 104 mmol/L (98-107); CREATININE, SERUM 0.67 mg/dL (0.72-1.25); EST GLOMERULAR FILTRATION RATE > 60 ML/MIN (60-); GLUCOSE 91 mg/dL (74-118); POTASSIUM 3.6 mmol/L (3.5-5.1); SODIUM 141 mmol/L (136-145)
[2019-12-01] MEDS: PIPER-TAZ 3.375 GM 50 ML IV SCH ×4 (05:53→23:19)
[2019-12-01] MEDS: METRONIDAZOLE 500MG/NS 100ML 100 ML IV SCH ×3 (06:29→20:46)
--- NOTE | 2019-12-01 06:33 | NUR ---
called answering service for dr Artie Hills, needed order for elevated blood pressure, awaiting for the MD to call back.
--- NOTE | 2019-12-01 11:29 | Progress Note ---
DATE: 12/01/2019 Cardiology Progress Note SUBJECTIVE: The patient denies chest pain or shortness of breath. OBJECTIVE: VITAL SIGNS: Temperature 98.7 degrees, pulse 93, respiratory rate 18, blood pressure 135/76, and oxygen saturation 100% on room air. GENERAL: Morbidly obese man, in no acute distress. Awake and alert. LUNGS: Clear to auscultation bilaterally. No wheezes or crackles. CARDIOVASCULAR: Normal rate. Regular rhythm. No murmur. Normal S1, S2. ABDOMEN: Soft, nontender. EXTREMITIES: Lymphedema and chronic venous stasis were observed. CARDIAC MEDICATIONS: None. LABORATORY DATA: WBC 8.67, hemoglobin 10.9, hematocrit 36.2, and platelets 258. Sodium 141, potassium 3.6, chloride 104, CO2 of 28, BUN 8, and creatinine 0.67. Telemetry was personally reviewed and interpreted, revealing normal sinus rhythm. IMPRESSION: 1. Cholecystitis. 2. History of aortic stenosis, status post transcatheter aortic valve replacement. 3. Moderate nonobstructive coronary artery disease. 4. Chronic left bundle-branch block. 5. Morbid obesity. 6. Lymphedema. RECOMMENDATIONS: Echocardiogram showed normal LV systolic function. Normal bioprosthetic valve function. The patient is status post open cholecystectomy. Resume pravastatin. We will start patient on losartan given elevated blood pressure. Resume Xarelto and aspirin once bleeding risk is acceptable from a surgical standpoint. Maintain the patient on telemetry. Thank you for this consult. We will continue to follow. Breonna Abebe MD ABS/MODL /[id number]
[2019-12-01] MEDS: PANTOPRAZOLE 40 MG 10ML VIAL IV SCH (17:21)
[2019-12-01] MEDS: ONDANSETRON HCL INJ 2MG/ML 2ML 2 MG/ML VIAL IV PRN (19:33)
[2019-12-01] MEDS: PRAVASTATIN 20 MG TAB PO SCH (20:46)
[2019-12-02] VITALS (8 sets, daily range): BP systolic 113–172; BP diastolic 75–92
[2019-12-02] MEDS: HYDROMORPHONE 1MG/1ML INJ IV PRN ×3 (01:30→21:04)
[2019-12-02] MEDS: METRONIDAZOLE 500MG/NS 100ML 100 ML IV SCH ×3 (05:00→22:00)
[2019-12-02] MEDS: PIPER-TAZ 3.375 GM 50 ML IV SCH ×3 (06:29→17:58)
[2019-12-02] MEDS: ONDANSETRON HCL INJ 2MG/ML 2ML 2 MG/ML VIAL IV PRN ×2 (07:37→15:00)
[2019-12-02] MEDS: LOSARTAN POTASSIUM 25 MG TAB PO SCH (08:01)
--- NOTE | 2019-12-02 09:35 | NUR ---
Pt sleeping soundly and no family present. Business Services Sales Agent left a card describing availability of card player and instructions on how to contact a card player. SHAHNAZ RAINEY Business Services Sales Agent Spiritual Care Department O: [phone]
--- NOTE | 2019-12-02 13:53 | Progress Note ---
DATE: 12/02/2019 Cardiology Progress Note SUBJECTIVE: The patient denies chest pain or shortness of breath. OBJECTIVE: VITAL SIGNS: Temperature 98.5 degrees, pulse 79, respiratory rate 20, blood pressure 146/92, oxygen saturation 95% on room air. GENERAL: Obese gentleman, in no acute distress. Awake and alert. LUNGS: Clear to auscultation bilaterally. No wheezes or crackles. CARDIOVASCULAR: Normal rate. Regular rhythm. No murmur. Normal S1, S2. ABDOMEN: Soft and nontender. EXTREMITIES: Lymphedema and chronic venous stasis were observed. CARDIAC MEDICATIONS: Losartan 12.5 mg p.o. daily. LABORATORY DATA: None today. TELEMETRY: Personally reviewed and interpreted revealing normal sinus rhythm. IMPRESSION: 1. Cholecystitis. 2. History of aortic stenosis, status post transcatheter aortic valve replacement. 3. Moderate nonobstructive coronary artery disease. 4. Chronic left bundle-branch block. 5. Morbid obesity. 6. Lymphedema. RECOMMENDATIONS: Echocardiogram showed normal LV systolic function, normal bioprosthetic valve function. The patient is status post open cholecystectomy. Resume pravastatin and losartan. Monitor blood pressure response, currently borderline for age. Resume Xarelto and aspirin once bleeding risk is acceptable from a surgical standpoint. Monitor patient on telemetry. Thank you for this consult. We will continue to follow. Breonna Abebe MD ABS/MODL /[id number]
--- NOTE | 2019-12-02 16:25 | NUR ---
ORDER RECEIVED FOR HOME HEALTH PT/OT/SN. MET W THE PT AT THE BEDSIDE. CHOICE GIVEN. PT CALLED HIS DTR BECAUSE SHE KNEW SOMEONE THAT WORKED W [employer]. CHOSE [facility] @ [phone] / FAX: [phone]. CONTACT LINDA GALDAMEZ. IMM LETTER SIGNED AND COPY TO PT AND COPY TO CHART. REFERRAL FAXED TO [facility].
[2019-12-02] MEDS: PANTOPRAZOLE 40 MG 10ML VIAL IV SCH (17:58)
--- NOTE | 2019-12-02 18:39 | NUR ---
MD LOPEZ REMOVED DRAIN TO RIGHT ABDOMEN AND APPLIED DRESSING. BANDAGES TO INCISIONS ON ABD CDI, NO DRAINAGE OR S/S INFECTION NOTED
[2019-12-02] MEDS ORDERED: SODIUM CHLORIDE 0.9% 250ML 250 ML ONE (20:56)
[2019-12-02] MEDS: PRAVASTATIN 20 MG TAB PO SCH (21:04)
[2019-12-03] VITALS: BP 140/64
[2019-12-03] MEDS: HYDROMORPHONE 1MG/1ML INJ IV PRN (02:30)
[2019-12-03] MEDS: ONDANSETRON HCL INJ 2MG/ML 2ML 2 MG/ML VIAL IV PRN (02:30)
[2019-12-03 04:00] VITALS: BP 141/64
[2019-12-03] MEDS: PIPER-TAZ 3.375 GM 50 ML IV SCH ×2 (05:41)
[2019-12-03] MEDS: METRONIDAZOLE 500MG/NS 100ML 100 ML IV SCH (06:16)
[2019-12-03 07:51] VITALS: BP 141/64
[2019-12-03] MEDS: LOSARTAN POTASSIUM 25 MG TAB PO SCH (08:17)
[2019-12-03 08:24] VITALS: BP 170/90
[2019-12-03 08:33] VITALS: BP 170/90
[2019-12-03] MEDS ORDERED: TYLENOL WITH C1 EACH PO (11:46)
[2019-12-03] MEDS ORDERED: LEVAQUIN500 MG PO (11:47)
--- NOTE | 2019-12-03 15:01 | NUR ---
Nutrition Screen Note RD Recommendation for Physician: -Recommend cardiac diet Plan of Care: RD following, monitoring for tolerance and adequacy Nutrition reason for involvement: follow up Primary Diagnose(s): acute cholecystitis PMH: morbid obesity, paroxysmal atrial fibrillation, moderate nonobstructive coronary artery disease, history of aortic stenosis status post transcatheter aortic valve replacement, and venous insufficiency with lymphedema Ht: 68 in Wt: 251 lbs (12/02) 357 lb (11/27) Suspect weight error BMI: 38.2 kg/m2 IBW:[address] Assessment: (12/03/19) Follow up. Pt was advanced to a full liquid diet on 11/29 and a regular diet on 11/30. Pt states he is tolerating diet with 50 to >50% meal intake. No N/V, but pt reports diarrhea. No chewing/swallowing issues. Will continue to monitor (11/28/19) Chart reviewed. Labs and meds reviewed. Pt is a 74 year old male admitted with acute cholecystitis. Pt had a laparoscopic cholecystectomy today per chart. Pt is currently NPO but was previously on a clear liquid diet. Pt has been NPO/clear liquid diet for > 4 days. Pt reports he had been tolerating clear liquids. Prior to admission, pt reports he was eating well. Pt reports he used to weigh 400 lbs in September and now weighs 361 lbs. Pt reports this is not unintentional weight loss. No N/V, but pt reports some diarrhea. Will continue to monitor unless consulted sooner. Current Diet: regular Malnutrition Evaluation (11/28/19) The patient does not meet criteria for a specified degree of malnutrition at this time. Will re-evaluate at follow-up as appropriate. Energy intake: Adequate PO intake reported at this time Weight loss: Not unintentional per patient Fat loss: no loss identified per observation Muscle loss: no loss identified per observation Supporting Evidence: Fluid accumulation: unable to evaluate Functional Status: unable to evaluate Diet Education Needs Assessment: RD is available for nutrition education as needed Nutrition Care Level: low Signed: Helen Yang RD, LD
== END 2019-12-03 12:07 | disposition home health service (06) | DRG 415 ==
LOC: FSED 19:00 → ERHOLD 20:59 → IMCU 22:38 → MED/SURG 12-02 16:16
PROC: 0FJ44ZZ Inspection of Gallbladder, Percutaneous Endoscopic Approach (ICD-10-PCS; 2019-11-28)
PROC: 0FT40ZZ Resection of Gallbladder, Open Approach (ICD-10-PCS; principal; 2019-11-28 11:00)
DX: K80.00 Calculus of gallbladder with acute cholecystitis without obstruction (principal); Z68.43 Body mass index [BMI] 50.0-59.9, adult; I11.9 Hypertensive heart disease without heart failure; I25.10 Atherosclerotic heart disease of native coronary artery without angina pectoris; I35.0 Nonrheumatic aortic (valve) stenosis; I44.7 Left bundle-branch block, unspecified; I48.0 Paroxysmal atrial fibrillation; Z79.01 Long term (current) use of anticoagulants; I87.2 Venous insufficiency (chronic) (peripheral); E66.01 Morbid (severe) obesity due to excess calories; Z68.38 Body mass index [BMI] 38.0-38.9, adult; J44.9 Chronic obstructive pulmonary disease, unspecified; E78.5 Hyperlipidemia, unspecified; Z95.2 Presence of prosthetic heart valve; Z74.01 Bed confinement status; M16.11 Unilateral primary osteoarthritis, right hip; K76.0 Fatty (change of) liver, not elsewhere classified
CPT/HCPCS: 36415; 71045; 76705; 80053; 81001; 81003; 83605; 83690; 85025; 85610; 85730; 86850; 86900; 87635; 88304; 93005; 93306; 94660; 97139; 99251; 99284; C1766; J0330; J0696; J1100; J1170; J2001; J2405; J2543; J3010; J7030; J7040; J7050